=== PATIENT | female | born 1975 | race Caucasian/White ===

== ENCOUNTER → 2019-10-26 15:28 | Outpatient (CLI) | payer OTHER, SELFPAY ==
--- NOTE | ~2019-10-26 | MM_ITS ---
EXAMINATION: MM screening shashi BI w conrad HISTORY: Screening mammogram TECHNIQUE: Craniocaudal and mediolateral oblique 3-D tomosynthesis images were obtained and synthetic 2-D images were generated. CAD analysis was submitted and interpreted. COMPARISON: 11/04/2017 BREAST PARENCHYMAL COMPOSITION: The breasts are heterogeneously dense, which may obscure small masses . FINDINGS: There is no evidence of suspicious mass, calcification, or architectural distortion to sugg est malignancy in either breast. There has been no suspicious interval change. IMPRESSION: 1. No mammographic evidence of malignancy. 2. Recommend routine screening mammography in one year. BI-RADS Category 1: Negative Reviewed, dictated and finalized at location A.
== END ==
PROVIDERS: Visit Provider Nurse Practitioner
DX: Z12.31 Encounter for screening mammogram for malignant neoplasm of breast (principal)
CPT/HCPCS: 77063; 77067

== ENCOUNTER 2020-04-11 09:52 | Outpatient (CLI) | payer OTHER, SELFPAY ==
[2020-04-11 10:56] LABS: Beta HCG Quantitative < 2.39 mIU/ML
== END 2020-04-11 09:53 | disposition home or self-care (01) ==
LOC: ANHLAB 09:54
PROVIDERS: Visit Provider Obstetrics & Gynecology Gynecology
DX: N93.8 Other specified abnormal uterine and vaginal bleeding (principal)
CPT/HCPCS: 36415; 84702

== ENCOUNTER 2020-08-27 09:32 | Outpatient (NON) | payer OTHER, SELFPAY ==
[2020-08-27 17:33] LABS: SARS-CoV-2 RNA PCR Negative
== END 2020-08-27 09:33 ==
LOC: ANHCOVIDDT 09:33
PROVIDERS: Family Provider Family Medicine; Visit Provider Nurse Practitioner Family
DX: M79.10 Myalgia, unspecified site (principal); R05 Cough; Z20.822 Contact with and (suspected) exposure to COVID-19
CPT/HCPCS: C9803; U0003; U0005

== ENCOUNTER 2020-08-29 08:16 | Outpatient (NON) | payer OTHER, SELFPAY ==
[2020-08-29 10:51] LABS: Influenza Control Positive
== END 2020-08-29 08:17 ==
LOC: ANHCOVIDDT 08:17
PROVIDERS: Family Provider Family Medicine; PCP Family Medicine; Visit Provider Nurse Practitioner Family
DX: M79.10 Myalgia, unspecified site (principal); R05 Cough
CPT/HCPCS: 87804

== ENCOUNTER → 2020-10-03 15:15 | Outpatient (CLI) | payer OTHER, SELFPAY ==
--- NOTE | ~2020-10-03 | US_ITS ---
EXAMINATION: US thyroid EXAM DATE: 10/03/2020 15:32 INDICATION: Thyroid enlargement on the left side. TECHNIQUE: Multiple grayscale and Doppler images of the thyroid were obtained (by a technologist who performed the scan) and subsequently reviewed. Individual nodules and recommendations may be reporte d in accordance with TI-RADS system as designated by the 2017 ACR White Paper TI-RADS committee. The re is no prior study for comparison. FINDINGS: The right thyroid lobe measures 4.1 x 1.1 x 1.4 cm, the left measures 4.7 x 0.8 x 1.5 cm. There is ho mogeneous thyroid echogenicity. The isthmus is normal in appearance. No focal nodule identified. IMPRESSION: 1. Unremarkable thyroid ultrasound exam. Reviewed, dictated and finalized at location A. [employer]
== END ==
PROVIDERS: Visit Provider Nurse Practitioner
DX: E07.9 Disorder of thyroid, unspecified (principal)
CPT/HCPCS: 76536

== ENCOUNTER → 2020-12-16 17:01 | Outpatient (CLI) | payer OTHER, SELFPAY ==
--- NOTE | ~2020-12-16 | MM_ITS ---
EXAMINATION: MM screening shashi BI w conrad HISTORY: Screening TECHNIQUE: Craniocaudal and mediolateral oblique 3-D tomosynthesis images were obtained and synthetic 2-D images were generated. CAD analysis was submitted and interpreted. COMPARISON: Comparison to multiple prior studies sequentially, with oldest reviewed study dated 12/2017. BREAST PARENCHYMAL COMPOSITION: The breasts are heterogeneously dense, which may obscure small masses . FINDINGS: There is no evidence of suspicious mass, calcification, or architectural distortion to sugg est malignancy in either breast. There has been no suspicious interval change. IMPRESSION: 1. No mammographic evidence of malignancy. 2. Recommend routine screening mammography in one year. BI-RADS Category 1: Negative Reviewed, dictated and finalized at location A.
== END ==
PROVIDERS: Visit Provider Nurse Practitioner
DX: Z12.31 Encounter for screening mammogram for malignant neoplasm of breast (principal)
CPT/HCPCS: 77063; 77067

== ENCOUNTER → 2021-10-22 15:15 | Outpatient (CLI) | payer OTHER, SELFPAY ==
--- NOTE | ~2021-10-22 | US_ITS ---
EXAMINATION: US transvaginal DATE: 10/22/2021 15:49 INDICATION: Excessive and frequent menstruation TECHNIQUE: Multiple endovaginal sonographic images of the pelvis were obtained. COMPARISON: 12/10/2016 FINDINGS: The uterus measures 9.4 x 4.7 x 7.1 cm. An IUD is in expected position. The endometrial com plex measures 7 mm. Intramural fibroids of the uterus measuring up to 2.6 cm. The right ovary measure s 2.1 x 1.9 x 2.8 cm. The left ovary measures 1.8 x 1.8 x 2.6 cm. There is normal vascular flow in th e ovaries. There is no free fluid in the pelvis. IMPRESSION: 1. No sonographic correlate for the patient's symptoms. Reviewed, dictated and finalized at location B.
== END ==
PROVIDERS: Visit Provider Nurse Practitioner
DX: N92.0 Excessive and frequent menstruation with regular cycle (principal)
CPT/HCPCS: 76830

== ENCOUNTER 2022-01-11 02:32 | Day surgery (SDC) | payer OTHER, SELFPAY ==
[2022-01-04 10:14] VITALS: BMI 20.2
--- NOTE | 2022-01-04 10:20 | PC.NURSE ---
Report to the Outpatient Waiting Room, entrance under the green pavilion located off [facility], at time 0830 on date 01/11/22. OR Time: 1030. - You and your visitor will be asked a series of questions to screen for COVID 19 for your protection. - Only one visitor is allowed at this time. - The patient visitor is requested to leave or wait in car when not with patient. - A mask is required within the hospital. Patients may have clear liquids (water, carbonated beverages, clear teas, apple juice) until 3 hours prior to surgery with a maximum of 20 ounces. - No food from midnight until time of surgery Take the following medications with a SIP of water the morning of surgery: CYMBALTA Medications to discontinue per physician: N/A Date to take last dose: N/A Please no make-up, nail vincentian, hairspray, perfume, deodorant, or body powder the day of surgery. No jewelry (including any body piercings) or valuables the day of surgery, leave them at home. Please take a shower or bath the night before, or the morning of, surgery with an antibacterial soap. Wear comfortable, loose fitting clothing. - Jewelry must be removed prior to entering the operating room. Rings and piercings that are not removed may be cut off. - The hospital will not accept responsibility for valuables. - Please leave all valuables, including medications, at home the day of surgery. If you are going home after surgery, a licensed motor pool driver must drive you home. - NO public transportation without another adult. - We recommend that an adult stay with you for 24 hours following discharge. - We also recommend that you do not drive, make important decision, drink alcoholic beverages, or take any drugs that were not prescribed by your health care provider for at least 24 hours after your discharge time. Follow any additional instructions given to you from your surgeon. If you or anyone in your household have experienced Covid symptoms in the past week, please notify your surgeon or the nurse liaison at the phone number below for possible testing. Telephone instructions given to PT - CATIA DOUGLASS and asked if any additional questions and then verbalized understanding. Patient advised to call surgeon office or pre surgery nurse liaison [phone] if any additional questions.
--- NOTE | 2022-01-11 06:48 | WPDHPUPDATE1 ---
History and Physical Update Update Date/Time: 01/11/22 06:48 History and Physical has been reviewed, including an updated exam of the patient. There are NO changes in the patient's condition. Risks, benefits, and alternatives have been discussed and questions answered. Patient agrees to proceed with procedure.
--- NOTE | 2022-01-11 06:48 | PM.HPGS ---
History of Present Illness History of Present Illness Consent: Risks, benefits, and alternatives have been discussed and questions answered. Patient agrees to proceed with procedure. Chief complaint: MENORRHAGIA Narrative: Audra Devine is a 46 year old female with heavy and long cycles that are occurring at regular intervals. Cycles have worsened over the past year. Review of Systems Constitutional: Constitutional: Reports night sweats PMFSH Past Medical History Medical History (Updated 01/11/22 @ 06:51 by Shira Yip MD) Anxiety and depression BMI 21.0-21.9, adult Essential (primary) hypertension (normal spontaneous vaginal delivery) X2 Surgical History Surgical History (Updated 01/11/22 @ 06:50 by Shira Yip MD) Status post breast reduction Status post LEEP (loop electrosurgical excision procedure) of cervix Family History Family History Father Pancreatic cancer Mother Cerebrovascular accident Pacemaker Hemiplegia Sibling No problems noted. 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 Gender identity (if verbalized by the patient): Female Spiritual care concerns: No Meds Home Medications and Allergies Home Medications Medication Instructions Recorded Confirmed Type duloxetine 30 mg capsule,delayed 30 mg PO DAILY #30 caps 11/25/21 01/04/22 Rx release trazodone 50 mg tablet 50 mg PO HS 01/04/22 01/04/22 History Allergies Allergy/AdvReac Type Severity Reaction Status Date / Time No Known Allergies Allergy Verified 01/04/22 10:13 Exam Const: General: healthy appearing and alert Orientation/consciousness: patient oriented x3 Resp: Effort & Inspection: normal respiratory effort Auscultation: clear to auscultation bilaterally Cardio: Rate: regular rate Rhythm: regular rhythm GI: GI Palp: Yes Soft to palpation, No Tenderness to palpation present (GI) and No Palpable mass present : External Female Exam: normal external appearance Speculum Exam - Vagina: normal appearance of the vagina and normal vaginal discharge Speculum Exam - Cervix: normal appearance of the cervix Bimanual exam- vagina & uterus: uterine size normal and consistency normal Bimanual Exam- Adnexa, other: normal adnexae and No adnexal tenderness Neuro: General: patient oriented x3 Assessment and Plan Assessment and plan (1) Menorrhagia: Code(s): N92.0 - Excessive and frequent menstruation with regular cycle Status: Acute Assessment and Plan: Plan is to proceed with D&C hysteroscopy
--- NOTE | 2022-01-11 08:48 | WPDANESEPPF ---
Anes - Initial Pre Proc Eval Procedure: Operation Date: 01/11/22 10:30 Proposed Procedures p Hysteroscopy with Dilation and Curettage - Shira Yip MD Date/Time: 01/11/22 08:48 Surgeon: Shira Yip MD Pre Op Diagnosis: MENORRHAGIA Patient Data Age: 46 Gender: F Height: 1.55 m Weight: 48.53 kg Allergies Allergy/AdvReac Type Severity Reaction Status Date / Time No Known Allergies Allergy Verified 01/11/22 08:50 Home Medications Medication Instructions Recorded Confirmed Type duloxetine 30 mg capsule,delayed 30 mg PO DAILY #30 caps 11/25/21 01/04/22 Rx release trazodone 50 mg tablet 50 mg PO HS 01/04/22 01/04/22 History Patient hx anesthesia problems: none Family hx anesthesia problems: none Results Review: All pre-operative results and documents have been reviewed as part of the pre-operative evaluation. [facility] Past Medical History Medical History (Updated 01/11/22 @ 06:51 by Shira Yip MD) Anxiety and depression BMI 21.0-21.9, adult Essential (primary) hypertension (normal spontaneous vaginal delivery) X2 Surgical History Surgical History (Updated 01/11/22 @ 06:50 by Shira Yip MD) Status post breast reduction Status post LEEP (loop electrosurgical excision procedure) of cervix Family History Family History Father Pancreatic cancer Mother Cerebrovascular accident Pacemaker Hemiplegia Sibling No problems noted. 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 Gender identity (if verbalized by the patient): Female Spiritual care concerns: No Anes - Eval Final PreProcedure Day of Procedure 01/11/22 08:48 Patient weight: normal Heart: regular rate and rhythm Lungs: clear to auscultation Airway: Mallampati scale class II Neurological: alert and oriented Last oral intake: >/= 8 hours ASA classification: II Emergent: no Anesthetic plan: proceed Anesthesia type and monitoring: general GIVS and standard monitoring Results Review: All pre-operative results and documents have been reviewed as part of the pre-operative evaluation. Informed Consent: The patient's anesthetic plan and its attendant risks and benefits were discussed with the patient/family/POA. Questions were solicited and answers provided to the satisfaction of the patient/family/POA.
--- NOTE | 2022-01-11 08:53 | P.PNAN_ITS ---
Anes - Initial Pre Proc Eval Procedure: Operation Date: 01/11/22 10:30 Proposed Procedures p Hysteroscopy with Dilation and Curettage - Shira Yip MD Date/Time: 01/11/22 08:53 Surgeon: Shira Yip MD Pre Op Diagnosis: MENORRHAGIA Patient Data Age: 46 Gender: F Height: 1.55 m Weight: 48.53 kg Allergies Allergy/AdvReac Type Severity Reaction Status Date / Time No Known Allergies Allergy Verified 01/11/22 08:50 Home Medications Medication Instructions Recorded Confirmed Type duloxetine 30 mg capsule,delayed 30 mg PO DAILY #30 caps 11/25/21 01/11/22 Rx release trazodone 50 mg tablet 50 mg PO HS 01/04/22 01/11/22 History Patient hx anesthesia problems: none Family hx anesthesia problems: none Results Review: All pre-operative results and documents have been reviewed as part of the pre- operative evaluation. [facility] Past Medical History Medical History (Updated 01/11/22 @ 06:51 by Shira Yip MD) Anxiety and depression BMI 21.0-21.9, adult Essential (primary) hypertension (normal spontaneous vaginal delivery) X2 Surgical History Surgical History (Updated 01/11/22 @ 06:50 by Shira Yip MD) Status post breast reduction Status post LEEP (loop electrosurgical excision procedure) of cervix Family History Family History Father Pancreatic cancer Mother Cerebrovascular accident Pacemaker Hemiplegia Sibling No problems noted. 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 Gender identity (if verbalized by the patient): Female Spiritual care concerns: No Anes - Eval Final PreProcedure Day of Procedure 01/11/22 08:53 Patient weight: normal Heart: regular rate and rhythm Lungs: clear to auscultation Airway: Mallampati scale class II Neurological: alert and oriented Last oral intake: >/= 8 hours ASA classification: II Emergent: no Anesthetic plan: proceed Anesthesia type and monitoring: general GIVS and standard monitoring Results Review: All pre-operative results and documents have been reviewed as part of the pre-operative evaluation. Informed Consent: The patient's anesthetic plan and its attendant risks and benefits were discussed with the patient/family/POA. Questions were solicited and answers provided to the satisfaction of the patient/family/POA.
[2022-01-11] MEDS: ACETAMINOPHEN 500 MG TABLET 1000 MG PO (08:55)
[2022-01-11 09:12] VITALS: BP 126/90; PULSE 80; RESP 16; TEMP 37.4; O2SAT 100
[2022-01-11] MEDS: LACTATED RINGERS 1,000 ML 30 ML IV CONT (09:12)
[2022-01-11] MEDS: LIDOCAINE HCL 1% PF 30 ML VIAL 10 ML INFILTRATE (09:40)
--- NOTE | 2022-01-11 09:47 | W.PM.PROC2 ---
Procedure Note - Detailed Date of Procedure 01/11/22 Pre-op Diagnosis MENORRHAGIA Post-op Diagnosis Same Procedure Performed D&C hysteroscopy Surgeon Shira Yip MD Anesthesia MAC and Local Findings cervix is stenotic. Retroverted uterus. IUD is intact and in place. Endometrium appears grossly normal Description of Procedure patient is taken to the operating room and placed under anesthesia in the dorsal lithotomy position. She was prepped and draped in usual sterile fashion. Billings speculum was placed in the vagina and the cervix was grasped on the anterior lip with a tenaculum. The cervix is injected in each quadrant with 1% lidocaine. Two os Finders are required due to stenosis. The uterus is noted to be retroverted. The cervix was then serially dilated with Hegar to an 8. The uterus is sounded to 7cm. The diagnostic hysteroscope was placed. IUD is noted to be intact and in place with no myometrial invasion. The endometrium itself appears grossly normal. the hysteroscope was removed and the sharp curette used to curette the endometrium until a good uterine cry was noted in all areas. All instruments were then removed. Patient was awakened from anesthesia and taken to recovery in stable condition. Sponge, needle, and instrument counts are correct per the OR staff. Estimated Blood Loss 5 Drains No Packing No Pathology Yes ( Endometrial curettings) Complications No immediate complications Condition Stable Disposition PACU
[2022-01-11 09:52] VITALS: BP 104/71; PULSE 75; RESP 12; O2SAT 100
[2022-01-11 10:15] VITALS: BP 141/91; PULSE 78; RESP 14
--- NOTE | 2022-01-11 10:21 | SUR.OPER ---
100ml ns in, 100ml ns out. aware
[2022-01-11 10:45] VITALS: BP 142/78; PULSE 72; RESP 20
== END 2022-01-11 11:00 | disposition home or self-care (01) ==
PROVIDERS: PCP Family Medicine; Visit Provider Obstetrics & Gynecology Gynecology
PROC: 0U5B8ZZ Destruction of Endometrium, Via Natural or Artificial Opening Endoscopic (ICD-10-PCS; CPT 58563; principal; 2022-01-11 10:30)
DX: N92.0 Excessive and frequent menstruation with regular cycle (principal); F41.9 Anxiety disorder, unspecified; F32.A Depression, unspecified; F17.210 Nicotine dependence, cigarettes, uncomplicated
CPT/HCPCS: 58558; 88305; A9270; J1100; J2250; J2405; J2704; J3010; J7030; J7120

== ENCOUNTER → 2022-02-11 15:55 | Outpatient (CLI) | payer OTHER, SELFPAY ==
--- NOTE | ~2022-02-11 | MM_ITS ---
EXAMINATION: MM screening [facility] BI w conrad HISTORY: Screening mammogram TECHNIQUE: Craniocaudal and mediolateral oblique 3-D tomosynthesis images were obtained and synthetic 2-D images were generated. CAD analysis was submitted and interpreted. COMPARISON: 12/16/2020, 10/26/2019, 11/04/2017 BREAST PARENCHYMAL COMPOSITION: The breasts are heterogeneously dense, which may obscure small masses . FINDINGS: There is no suspicious mass, calcification, or architectural distortion to suggest malignan cy in either breast. There has been no suspicious interval change. IMPRESSION: 1. No mammographic evidence of malignancy. 2. Recommend routine screening mammography in one year. BI-RADS Category 1: Negative Reviewed, dictated and finalized at location A.
== END ==
PROVIDERS: PCP Family Medicine; Visit Provider Nurse Practitioner
DX: Z12.31 Encounter for screening mammogram for malignant neoplasm of breast (principal)
CPT/HCPCS: 77063; 77067

== ENCOUNTER → 2023-02-15 07:17 | Outpatient (CLI) | payer OTHER, SELFPAY ==
--- NOTE | ~2023-02-15 | MM_ITS ---
EXAMINATION: MM screening shashi BI w conrad HISTORY: Screening TECHNIQUE: Craniocaudal and mediolateral oblique 3-D tomosynthesis images were obtained and synthetic 2-D images were generated. CAD analysis was submitted and interpreted. COMPARISON: Comparison to multiple prior studies sequentially, with oldest reviewed study dated 12/2017. BREAST PARENCHYMAL COMPOSITION: The breasts are heterogeneously dense, which may obscure small masses . FINDINGS: There is a mass in the subareolar location of the left breast, not definitely seen on prior studies. The right breast is stable without evidence for malignancy. IMPRESSION: 1. New mass subareolar location of the left breast. 2. Additional mammographic views and possible breast ultrasound are recommended. BI-RADS Category 0: Incomplete: Needs additional imaging evaluation. Reviewed, dictated and finalized at location A. IMPRESSION: 1. New mass subareolar location of the left breast. 2. Additional mammographic views and possible breast ultrasound are recommended . BI-RADS Category 0: Incomplete: Needs additional imaging evaluation.
== END ==
PROVIDERS: PCP Obstetrics & Gynecology Gynecology; Visit Provider Obstetrics & Gynecology Gynecology
DX: Z12.31 Encounter for screening mammogram for malignant neoplasm of breast (principal); R92.8 Other abnormal and inconclusive findings on diagnostic imaging of breast
CPT/HCPCS: 77063; 77067

== ENCOUNTER → 2023-03-15 07:39 | Outpatient (CLI) | payer OTHER, SELFPAY ==
--- NOTE | ~2023-03-15 | MMUS_ITS ---
EXAMINATION: MM diagnostic shashi LT w conrad, US breast LT limited HISTORY: Follow-up left breast mass TECHNIQUE: Additional 3-D tomosynthesis images of the left breast were performed and synthetic 2-D im ages were generated. CAD analysis was submitted and interpreted. High resolution Limited left breast ultrasound was performed. COMPARISON: Comparison to multiple prior studies sequentially, with oldest reviewed study dated 12/2017. BREAST PARENCHYMAL COMPOSITION: The breasts are heterogeneously dense, which may obscure small masses FINDINGS: MAMMOGRAPHIC FINDINGS: There is a persistent small subareolar mass of the left breast. There are no suspicious calcification s or architectural distortion. ULTRASOUND: Limited left breast ultrasound: Near the nipple there is a 6 mm cyst. No suspicious masses are identi fied to suggest malignancy. These cysts corresponds to the mammographic finding. IMPRESSION: 1. No evidence for malignancy in the left breast. Benign finding. 2. Routine yearly screening mammogram and regular clinical breast examination are recommended. BI-RADS Category 2: Benign finding(s). Reviewed, dictated and finalized at location A. IMPRESSION: 1. No evidence for malignancy in the left breast. Benign finding. 2. Routine yearly screening mammogram and regular clinical breast examination a re recommended. BI-RADS Category 2: Benign finding(s).
== END ==
PROVIDERS: PCP Obstetrics & Gynecology Gynecology; Visit Provider Obstetrics & Gynecology Gynecology
DX: R92.8 Other abnormal and inconclusive findings on diagnostic imaging of breast (principal)
CPT/HCPCS: 76642; 77061; 77065; G0279

== ENCOUNTER 2023-03-21 06:10 | Day surgery (SDC) | payer OTHER, SELFPAY ==
[2023-02-15 11:36] VITALS: BMI 21.5
--- NOTE | 2023-03-21 06:57 | WPDANESEPPF ---
Anes - Initial Pre Proc Eval Procedure: Operation Date: 03/21/23 08:00 Proposed Procedures p Screening Colonoscopy - Jasson Sumner MD Date/Time: 03/21/23 06:57 Surgeon: Jasson Sumner MD Pre Op Diagnosis: Neoplasm Screening Patient Data Age: 47 Gender: F Height: 1.52 m Weight: 50 kg Allergies Allergy/AdvReac Type Severity Reaction Status Date / Time No Known Allergies Allergy Verified 03/21/23 07:00 Home Medications Medication Instructions Recorded Confirmed Type duloxetine 30 mg capsule,delayed 30 mg PO DAILY #30 caps 02/16/23 03/21/23 Rx release trazodone 50 mg tablet 50 mg PO HS #30 tabs 02/16/23 03/21/23 Rx Patient hx anesthesia problems: none Family hx anesthesia problems: none Results Review: All pre-operative results and documents have been reviewed as part of the pre-operative evaluation. PMFSH Past Medical History Medical History Anxiety and depression BMI 21.0-21.9, adult Essential (primary) hypertension (normal spontaneous vaginal delivery) X2 Surgical History Surgical History Status post breast reduction Status post LEEP (loop electrosurgical excision procedure) of cervix Family History Family History Father Pancreatic cancer Mother Cerebrovascular accident Pacemaker Hemiplegia Sibling No problems noted. 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 Gender identity (if verbalized by the patient): Female Spiritual care concerns: No Anes - Eval Final PreProcedure Day of Procedure 03/21/23 06:57 Patient weight: normal Heart: regular rate and rhythm Lungs: clear to auscultation and normal air movement Airway: Mallampati scale class II Neurological: alert and oriented Last oral intake: >/= 8 hours ASA classification: II Emergent: no Anesthetic plan: proceed Anesthesia type and monitoring: general GIVS and standard monitoring Results Review: All pre-operative results and documents have been reviewed as part of the pre-operative evaluation. Informed Consent: The patient's anesthetic plan and its attendant risks and benefits were discussed with the patient/family/POA. Questions were solicited and answers provided to the satisfaction of the patient/family/POA.
[2023-03-21 07:08] VITALS: BP 135/107; PULSE 85; RESP 14; TEMP 36.6; O2SAT 100
[2023-03-21] MEDS: LACTATED RINGERS 1,000 ML 150 ML IV CONT (07:18)
--- NOTE | 2023-03-21 08:15 | PM.HPGS ---
History of Present Illness History of Present Illness Consent: Risks, benefits, and alternatives have been discussed and questions answered. Patient agrees to proceed with procedure. Chief complaint: Neoplasm Screening Narrative: Audra Devine is a 47 year old female here for first screening colonoscopy Review of Systems Constitutional: Constitutional: Denies headache(s) and Denies weakness Eyes: Eyes: Denies blurry vision ENT: Reports Normal hearing present, Denies headache(s) and Denies neck pain Cardiovascular: Cardiovascular: Denies chest pain and Denies dyspnea Respiratory: Respiratory: Denies dyspnea Gastrointestinal: Gastrointestinal: Reports no additional gastrointestinal complaints Genitourinary: Genitourinary: Denies dysuria Musculoskeletal: Musculoskeletal: Denies neck pain Integumentary/Breasts: Skin/Breast: Denies dry skin Neurologic: Reports Normal hearing present, Denies headache(s) and Denies weakness Psychiatric: Psychiatric: Denies anxiety Endocrine: Endocrine: Denies change in body appearance Hematologic/Lymphatic: Hematologic/Lymphatic: Denies easy bleeding Allergic/Immunologic: Allergic/Immunologic: Denies urticaria PMFSH Past Medical History Medical History Anxiety and depression BMI 21.0-21.9, adult Essential (primary) hypertension (normal spontaneous vaginal delivery) X2 Surgical History Surgical History Status post breast reduction Status post LEEP (loop electrosurgical excision procedure) of cervix Family History Family History Father Pancreatic cancer Mother Cerebrovascular accident Pacemaker Hemiplegia Sibling No problems noted. 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 Gender identity (if verbalized by the patient): Female Spiritual care concerns: No Meds Home Medications and Allergies Home Medications Medication Instructions Recorded Confirmed Type duloxetine 30 mg capsule,delayed 30 mg PO DAILY #30 caps 02/16/23 03/21/23 Rx release trazodone 50 mg tablet 50 mg PO HS #30 tabs 02/16/23 03/21/23 Rx Allergies Allergy/AdvReac Type Severity Reaction Status Date / Time No Known Allergies Allergy Verified 03/21/23 07:00 Vital Signs Vital Signs - 24 hr 03/21/23 07:08 Temperature 98 F Pulse Rate 85 Respiratory Rate 14 Blood Pressure 135/107 H Pulse Oximetry 100 Oxygen Delivery Room Air Exam Const: General: comfortable and no acute distress HENMT: Face/Nose/Sinus: Normal nares present Eyes: General: appearance normal, both eyes and all related structures Neck: Neck: no JVD Resp: Auscultation: clear to auscultation bilaterally Cardio: Rate: regular rate Rhythm: regular rhythm GI: Inspection: non-distended GI Palp: Yes Soft to palpation Skin: General skin exam: normal color Neuro: General: gait normal Speech: normal speech Extrem: General: normal to inspection Psych: Mental Status: mental status grossly normal Assessment and Plan Assessment and plan (1) Screening for malignant neoplasm of colon: Code(s): Z12.11 - Encounter for screening for malignant neoplasm of colon Status: Acute Assessment and Plan: colonoscopy
[2023-03-21 08:31] VITALS: BP 108/73; PULSE 69; RESP 16; O2SAT 99
[2023-03-21 08:41] VITALS: BP 111/76; PULSE 74; RESP 16; O2SAT 100
[2023-03-21 08:51] VITALS: BP 136/92; PULSE 72; RESP 18; O2SAT 100
--- NOTE | 2023-03-21 12:34 | WPDANESPN ---
Anes - Prog Note Post-Op Date/Time: 03/21/23 12:34 Cardiovascular status: normal Respiratory status: normal Airway patency: baseline Mental status: baseline Post-Op hydration status: normal Vital Signs: Last Vital Signs Temp 36.6 C 03/21/23 07:08 Pulse 72 03/21/23 08:51 Resp 18 03/21/23 08:51 BP 136/92 H 03/21/23 08:51 Pulse Ox 100 03/21/23 08:51 O2 Del Method Room Air 03/21/23 08:51 Pain Score (VAS): 0 I/O: Intake & Output 03/20/23 03/21/23 03/21/23 23:59 07:59 15:59 Intake Total 500 Balance 500 Post-procedural complaints: none Patient Feedback: Patient satisfied with anesthetic care. Other Findings: Patient vital signs back to baseline. Patient denies nausea and vomiting. Patient's pain under control. Patient OK for discharge.
== END 2023-03-21 09:06 | disposition home or self-care (01) ==
PROVIDERS: PCP Family Medicine; Visit Provider Internal Medicine Gastroenterology
PROC: 0DJD8ZZ Inspection of Lower Intestinal Tract, Via Natural or Artificial Opening Endoscopic (ICD-10-PCS; CPT 45378; principal; 2023-03-21 08:00)
DX: Z12.11 Encounter for screening for malignant neoplasm of colon (principal); K64.8 Other hemorrhoids
CPT/HCPCS: 45378

== ENCOUNTER 2023-08-08 15:22 | Day surgery (SDC) | payer OTHER, SELFPAY ==
[2023-07-26 13:51] VITALS: BMI 21.7
--- NOTE | 2023-07-26 13:56 | PC.NURSE ---
Report to the Outpatient Waiting Room, entrance under the green pavilion located off [facility], at time _0930_ on date _[id number]_. Planned Procedure Time: _1130_. Time changes happen often and if your time is changed the preop area will call you the afternoon before. - You and your visitor will be asked to self-screen and do not enter if you have any COVID symptoms. - A mask is optional within the hospital at this time. Patients may have clear liquids (water, carbonated beverages, clear teas, apple juice) until 3 hours prior to surgery with a maximum of 20 ounces. - No food from midnight until time of surgery Take the following medications with a SIP of water the morning of surgery: Duloxetine DO NOT STOP ANY OF YOUR OTHER PRESCRIPTION MEDICATIONS PRIOR TO SURGERY ?EXCEPT THE FOLLOWING Medications to discontinue per physician None Date to take last dose Please no make-up, nail bolivian, hairspray, perfume, deodorant, or body powder the day of surgery. No jewelry (including any body piercings) or valuables the day of surgery, leave them at home. Please take a shower or bath the night before, or the morning of, surgery with an antibacterial soap. Wear comfortable, loose fitting clothing. - Jewelry must be removed prior to entering the operating room. Rings and piercings that are not removed may be cut off. - The hospital will not accept responsibility for valuables. - Please leave all valuables, including medications, at home the day of surgery. If you are going home after surgery, a licensed high lift driver must drive you home. - NO public transportation without another adult if you receive anesthesia. - We recommend that an adult stay with you for 24 hours following discharge. - We also recommend that you do not drive, make important decision, drink alcoholic beverages, or take any drugs that were not prescribed by your health care provider for at least 24 hours after your discharge time. Follow any additional instructions given to you from your surgeon. If you or anyone in your household have experienced Covid symptoms in the past week, please notify your surgeon or the nurse liaison at the phone number below for possible testing. Telephone instructions given to __Pam_and asked if any additional questions and then verbalized understanding. Patient advised to call surgeon office or pre surgery nurse liaison [phone] if any additional questions.
[2023-08-08] VITALS (11 sets, daily range): BP systolic 123–167; BP diastolic 86–104; PULSE 76–97; RESP 14–20; TEMP 36.1–36.9; O2SAT 98–100
--- NOTE | 2023-08-08 08:29 | WPDHPUPDATE1 ---
History and Physical Update Update Date/Time: 08/08/23 08:29 History and Physical has been reviewed, including an updated exam of the patient. There are NO changes in the patient's condition. Risks, benefits, and alternatives have been discussed and questions answered. Patient agrees to proceed with procedure.
--- NOTE | 2023-08-08 08:29 | PM.HPGS ---
History of Present Illness History of Present Illness Consent: Risks, benefits, and alternatives have been discussed and questions answered. Patient agrees to proceed with procedure. Chief complaint: Menorrhagia Narrative: Audra Devine is a 47 year old female with menorrhagia. Patient underwent D&C hysteroscopy with benign findings. Options were reviewed and the patient has elected to proceed with endometrial ablation. In addition the patient has completed her childbearing and wishes to proceed with laparoscopic tubal ligation. Risks of infection, bleeding, perforation of the uterus, and injury to internal organs are reviewed. Failure of tubal ligation with increased risk of ectopic as well as success of the endometrial ablation are reviewed. Patient voices understanding and agrees to proceed. Review of Systems Review of Systems: not repeated day of surgery; patient states no changes in status PMFSH Past Medical History Medical History (Updated 08/08/23 @ 08:32 by Shira Yip MD) Anxiety and depression Essential (primary) hypertension Family hx of colon cancer (normal spontaneous vaginal delivery) X2 Surgical History Surgical History (Updated 08/08/23 @ 08:31 by Shira Yip MD) History of hysteroscopy Status post breast reduction Status post LEEP (loop electrosurgical excision procedure) of cervix Family History Family History Father Pancreatic cancer Mother Cerebrovascular accident Pacemaker Hemiplegia Sibling No problems noted. 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 Gender identity (if verbalized by the patient): Female Spiritual care concerns: No Meds Home Medications and Allergies Home Medications Medication Instructions Recorded Confirmed Type duloxetine 30 mg capsule,delayed 30 mg PO DAILY #30 caps 02/16/23 07/26/23 Rx release trazodone 50 mg tablet 50 mg PO HS #30 tabs 06/18/23 07/26/23 Rx triamcinolone acetonide 0.5 % 1 applic topical BID #30 grams 07/21/23 07/26/23 Rx topical cream Allergies Allergy/AdvReac Type Severity Reaction Status Date / Time No Known Allergies Allergy Verified 07/26/23 13:50 Exam Const: General: healthy appearing and alert Orientation/consciousness: patient oriented x3 Resp: Effort & Inspection: normal respiratory effort GI: GI Palp: Yes Soft to palpation, No Tenderness to palpation present (GI) and No Palpable mass present : External Female Exam: normal external appearance Speculum Exam - Vagina: normal appearance of the vagina and normal vaginal discharge Speculum Exam - Cervix: normal appearance of the cervix Bimanual exam- vagina & uterus: uterine size normal and consistency normal Bimanual Exam- Adnexa, other: normal adnexae and No adnexal tenderness Neuro: General: patient oriented x3 Assessment and Plan Assessment and plan (1) Menorrhagia: Code(s): N92.0 - Excessive and frequent menstruation with regular cycle Status: Acute Assessment and Plan: plan to proceed with Margaret endometrial ablation (2) Encounter for sterilization: Code(s): Z30.2 - Encounter for sterilization Status: Acute Assessment and Plan: plan to proceed with laparoscopic bilateral salpingectomy for sterilization
[2023-08-08] MEDS: LACTATED RINGERS 1,000 ML 30 ML IV CONT ×2 (09:45→13:02)
--- NOTE | 2023-08-08 10:04 | P.PNAN_ITS ---
Anes - Initial Pre Proc Eval Procedure: Operation Date: 08/08/23 11:30 Proposed Procedures p Laparoscopic Bilateral Salpingectomy, Hysteroscopy with Margaret Endometrial Ablation - Shira Yip MD Date/Time: 08/08/23 10:04 Surgeon: Shira Yip MD Pre Op Diagnosis: Menorrhagia Patient Data Age: 47 Gender: F Height: 1.55 m Weight: 52.3 kg Allergies Allergy/AdvReac Type Severity Reaction Status Date / Time No Known Allergies Allergy Verified 07/26/23 13:50 Home Medications Medication Instructions Recorded Confirmed Type duloxetine 30 mg capsule,delayed 30 mg PO DAILY #30 caps 02/16/23 07/26/23 Rx release trazodone 50 mg tablet 50 mg PO HS #30 tabs 06/18/23 07/26/23 Rx triamcinolone acetonide 0.5 % 1 applic topical BID #30 grams 07/21/23 07/26/23 Rx topical cream Patient hx anesthesia problems: none Family hx anesthesia problems: none Results Review: All pre-operative results and documents have been reviewed as part of the pre-operative evaluation. [facility] Past Medical History Medical History Anxiety and depression Essential (primary) hypertension Family hx of colon cancer (normal spontaneous vaginal delivery) X2 Surgical History Surgical History History of hysteroscopy Status post breast reduction Status post LEEP (loop electrosurgical excision procedure) of cervix Family History Family History Father Pancreatic cancer Mother Cerebrovascular accident Pacemaker Hemiplegia Sibling No problems noted. 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 Gender identity (if verbalized by the patient): Female Spiritual care concerns: No Anes - Eval Final PreProcedure Day of Procedure 08/08/23 10:04 Patient weight: normal Heart: regular rate and rhythm Lungs: decreased breath sounds Airway: Mallampati scale class II Neurological: alert and oriented Last oral intake: >/= 8 hours ASA classification: II Emergent: no Anesthetic plan: proceed Anesthesia type and monitoring: general ETT and standard monitoring Results Review: All pre-operative results and documents have been reviewed as part of the pre- operative evaluation. Informed Consent: The patient's anesthetic plan and its attendant risks and benefits were discussed with the patient/family/POA. Questions were solicited and answers provided to the satisfaction of the patient/family/POA.
[2023-08-08] MEDS: ACETAMINOPHEN 500 MG TABLET 1000 MG PO (10:07)
[2023-08-08] MEDS: SCOPOLAMINE 1 MG PATCH 1 PATCH TRANSDERM (10:08)
[2023-08-08] MEDS: KETOROLAC 15 MG/ML VIAL (*BKC) IV PUSH (10:08)
--- NOTE | 2023-08-08 13:00 | P.OP_ITS ---
Procedure Note - Detailed Date of Procedure 08/08/23 Pre-op Diagnosis Menorrhagia; requests sterilization Post-op Diagnosis Same Procedure Performed laparoscopic bilateral salpingectomy Margaret endometrial ablation Surgeon Shira Yip MD Anesthesia General Findings The cervix is stenotic. The endometrium appears grossly normal. The tubes, ovaries, and uterus appeared grossly normal except for a cluster of 3 tubal cysts on the right distal tube. Description of Procedure The patient is taken to the operating room and placed under anesthesia in the dorsal lithotomy position. She was prepped and draped in the usual sterile fashion. The bladder was drained with a red rubber catheter. [place] speculum was placed in the vagina and the cervix grasped on the anterior lip with a tenaculum. The acorn manipulator was placed and the speculum removed. The attention was then turned to the abdomen. A vertical skin incision was made at the base of the umbilicus. The abdomen is tented and the Veress needle placed. Water drop test is normal and the opening patient pressure was 5mmHg. Pneumoperitoneum was obtained using CO2 to a patient pressure 15mmHg. The Veress needle was then removed. The 5mm Optiview trocar was then placed while tenting the abdomen. Intra-abdominal placement was confirmed with the laparoscope. The patient was placed in Trendelenburg and 2 additional 5mm trocars were placed to the left and right of midline at the level of the 2 cm above the symphysis pubis. The blunt probe was used to bring the tubes into the surgical field. The insurance administrative assistant grasped the left tube at the distal end. Then using the LigaSure, the mesosalpinx is cauterized and cut. Once the cornua was reached the tube was crossclamped and cut. The tube was removed through the lower port. The identical procedure was performed on the right side. The cluster of tubal cyst was attempted to be ruptured without opening additional devices this was not successful decision was made to excise. The LigaSure is used to cauterize and cut just below the tubal cysts and they are removed through the lower port. Then all instruments are removed from the abdomen and the pneumoperitoneum is reduced. Skin incisions were closed using 4-0 nylon in interrupted fashion sterile bandages are applied. Attention was turned to the vagina where the acorn manipulator was removed and the speculum replaced. The uterus is attempted to be sounded and noted to be stenotic at the internal os. The 3/4 Hegar dilator is used and able to enter the cavity. The hysteroscope was then placed and the endometrium appears grossly normal. The cervix is serially dilated to an 8 Hegar. The Margaret device is opened and placed. Cavity assessment passed on the 1st attempt and the treatment cycle lasted the full 2minutes. The Margaret device is removed and the hysteroscope replaced. Good ablation effect is noted. All instruments are removed. The patient is taken down from lithotomy position and awakened from anesthesia. She was taken to recovery in stable condition. Sponge, needle, and instrument counts are correct per the OR staff. Estimated Blood Loss 5 Drains No Packing No Pathology Yes ( Bilateral tubes with tubal cysts) Complications No immediate complications Condition Stable Disposition PACU
[2023-08-08] MEDS: fentaNYL CITRATE INJ (*CRX) 100 MCG/2 ML VIAL 25 MCG IV PUSH ×8 (13:26→14:37)
[2023-08-08] MEDS: oxyCODONE HCL (*CRX) 5 MG TAB IR PO (14:40)
== END 2023-08-08 15:25 | disposition home or self-care (01) ==
LOC: ANHSURGERY 15:23
PROVIDERS: PCP Family Medicine; Visit Provider Obstetrics & Gynecology Gynecology
PROC: 0UDB8ZZ Extraction of Endometrium, Via Natural or Artificial Opening Endoscopic (ICD-10-PCS; CPT 58558; principal; 2023-08-08 11:30)
DX: N92.0 Excessive and frequent menstruation with regular cycle (principal); N83.8 Other noninflammatory disorders of ovary, fallopian tube and broad ligament; I10 Essential (primary) hypertension; F41.8 Other specified anxiety disorders; F17.210 Nicotine dependence, cigarettes, uncomplicated; Z98.890 Other specified postprocedural states; Z80.0 Family history of malignant neoplasm of digestive organs; Z82.49 Family history of ischemic heart disease and other diseases of the circulatory system
CPT/HCPCS: 58661; 58563; 88302; A9270; J0330; J1100; J1885; J2250; J2405; J2704; J3010; J7120

== ENCOUNTER 2024-05-14 07:17 | Outpatient (CLI) | payer OTHER, SELFPAY ==
--- NOTE | ~2024-05-14 | MM_ITS ---
EXAMINATION: MM screening shashi BI w conrad HISTORY: Screening TECHNIQUE: Craniocaudal and mediolateral oblique 3-D tomosynthesis images were obtained and synthetic 2-D images were generated. CAD analysis was submitted and interpreted. COMPARISON: Comparison to multiple prior studies sequentially, with oldest reviewed study dated 12/2017. BREAST PARENCHYMAL COMPOSITION: Dense: The breasts are heterogeneously dense, which may obscure small masses FINDINGS: There is distortion in both breasts consistent with prior breast reduction surgery which is stable. There is no evidence of suspicious mass, calcification, or architectural distortion to sugge st malignancy in either breast. There has been no suspicious interval change. IMPRESSION: 1. No mammographic evidence of malignancy. 2. Recommend routine screening mammography in one year. BI-RADS Category 2: Benign finding(s). Reviewed, dictated and finalized at location B.
== END 2024-05-14 07:18 | disposition home or self-care (01) ==
PROVIDERS: PCP Family Medicine; Visit Provider Obstetrics & Gynecology Gynecology
DX: Z12.31 Encounter for screening mammogram for malignant neoplasm of breast (principal)
CPT/HCPCS: 77063; 77067

== ENCOUNTER 2025-05-09 10:50 | Outpatient (CLI) | payer OTHER, SELFPAY ==
--- NOTE | ~2025-05-09 | US_ITS ---
EXAMINATION: US transvaginal DATE: 05/09/2025 11:26 INDICATION: Intra-abdominal and pelvic swelling, mass, and lump. TECHNIQUE: Multiple transvaginal sonographic images of the pelvis were obtained. COMPARISON: Ultrasound 10/22/2021 FINDINGS: The uterus measures 7.7 x 4.4 x 6.8 cm. There is no free fluid in the pelvis. The endometrial complex measures 7 mm in thickness. The right ovary measures 1.7 x 1.0 x 1.7 cm. The left ovary measures 2.4 x 1.5 x 2.1 cm. IMPRESSION: 1. Enlarged uterus, likely secondary to ill-defined fibroids. Reviewed, dictated and finalized at location E.
== END 2025-05-09 10:51 | disposition home or self-care (01) ==
LOC: MICIMG 10:51
PROVIDERS: PCP Family Medicine
DX: N85.2 Hypertrophy of uterus (principal); R19.00 Intra-abdominal and pelvic swelling, mass and lump, unspecified site
CPT/HCPCS: 76830

== ENCOUNTER 2025-07-10 14:10 | Outpatient (CLI) | payer OTHER, SELFPAY ==
--- NOTE | ~2025-07-10 | MM_ITS ---
EXAMINATION: MM screening shashi BI w conrad HISTORY: Screening. Bilateral reduction mammoplasty. TECHNIQUE: Craniocaudal and mediolateral oblique 3-D tomosynthesis images were obtained and synthetic 2-D images were generated. CAD analysis was submitted and interpreted. COMPARISON: 2023, 2022, and 2021. BREAST PARENCHYMAL COMPOSITION: Dense: The breasts are heterogeneously dense FINDINGS: No suspicious masses are seen. There are no suspicious calcifications. Postoperative changes are seen. No unexplained architectural distortion is seen. There are no skin or nipple abnormalities identified. There is no adenopathy seen on the images submitted. IMPRESSION: No mammographic evidence to suggest malignancy is seen. The patient may return to screening mammography as per ACR guidelines. BI-RADS 2 - Benign. Reviewed, dictated and finalized at location C. [employer] FIN[employer]GER
== END 2025-07-10 14:11 | disposition home or self-care (01) ==
DX: Z12.31 Encounter for screening mammogram for malignant neoplasm of breast (principal)
CPT/HCPCS: 77063; 77067